=== PATIENT | male | born 1955 | race Caucasian/White ===

== ENCOUNTER 2019-09-07 06:46 | Day surgery (SDC) | payer BC ==
--- NOTE | 2019-09-04 11:09 | PCM.PREANE ---
Preanesthetic Assessment - Anesthesia/Transfusion/Family Hx Anesthesia History: Prior Anesthesia Without Reaction Family History of Anesthesia Reaction: No Transfusion History: No Prior Transfusion(s) Intubation History: Unknown - Review of Systems General: Fatigue Pulmonary: No Symptoms (BRETT with no CPAP) - Physical Assessment NPO Status Date: 09/06/19 Vital Signs: HR: BP: Resp: Sat: Temp: Height: 1.85 m ASA Class: 2 Mental Status: Alert & Oriented x3 - Lab Values: Laboratory Last Values MRSA (PCR) Negative 09/02/19 15:46 All labs reviewed and noted and within acceptable ranges to proceed with scheduled procedure. - Imaging/EKG Impressions: EKG: - Anesthesia Plan Pre-Op Medication Ordered: None - Acknowledgements Anesthesia Type Planned: General Anesthesia Pt an Appropriate Candidate for the Planned Anesthesia: Yes Alternatives and Risks of Anesthesia Discussed w Pt/Guardian: Yes Pt/Guardian Understands and Agrees with Anesthesia Plan: Yes PreAnesthesia Questionnaire - CURRENT (IN HOUSE) MEDS Current Meds: Current Medications Lactated Ringer's (Ringers, Lactated) 1,000 mls @ 125 mls/hr IV ASDIRECTED NEENA Stop: 09/07/19 23:00 Lidocaine/Sodium Bicarbonate (Buffered Lidocaine 1% In Ns 8.4%) 0.25 ml IDERM ONETIME PRN PRN Reason: Prior to IV Start Stop: 09/07/19 18:00 Sodium Chloride (Saline Flush) 10 ml FLUSH ASDIRECTED PRN PRN Reason: Keep Vein Open Stop: 09/07/19 18:00
[~2019-09-07 06:46] MED LIST: Lactated Ringers 1,000 ML IV SCH; Lidocaine 1%/Sod Bicarbonate in NS 8.4% 1 ML Syringe IDERM PRN; Sodium Chloride 0.9% 10 ML Syringe FLUSH PRN
[2019-09-07] MEDS ORDERED: Bupivacaine 0.25% 10 ML SDV ONE (07:38)
[2019-09-07] MEDS ORDERED: Lidocaine 1% 4 ML ONE (07:41)
[2019-09-07] MEDS ORDERED: Propofol 200 MG/20 ML SDV ONE (07:41)
[2019-09-07] MEDS ORDERED: fentaNYL 250 MCG/5 ML SDV ONE (07:41)
[2019-09-07] MEDS ORDERED: Lactated Ringers 1,000 ML ONE (07:41)
[2019-09-07] MEDS ORDERED: Ondansetron 4 MG/2 ML SDV ONE (07:41)
[2019-09-07] MEDS ORDERED: Midazolam 1 MG/ML 2 ML SDV ONE (07:41)
[2019-09-07] MEDS ORDERED: ceFAZolin 1 GM Vial ONE ×2 (07:41→07:42)
[2019-09-07] MEDS ORDERED: Dexamethasone 4 MG/ML 5 ML MDV ONE (07:42)
[2019-09-07] MEDS ORDERED: Ketorolac 30 MG/ML SDV ONE (07:42)
--- NOTE | 2019-09-07 08:09 | PCM.PREANE ---
Preanesthetic Assessment - Anesthesia/Transfusion/Family Hx Anesthesia History: Prior Anesthesia Without Reaction Family History of Anesthesia Reaction: No Transfusion History: No Prior Transfusion(s) Intubation History: Unknown - Review of Systems General: Fatigue Pulmonary: Other (Sleep apnea does not use CPAP at this time. He will be going in for a mask fitting soon. ) Cardiovascular: No Symptoms Gastrointestinal: No Symptoms Neurological: No Symptoms Other: Reports: None - Physical Assessment NPO Status Date: 09/06/19 NPO Status Time: 23:30 Vital Signs: Last Vital Signs Temp 36.2 C 09/07/19 06:55 Pulse 64 09/07/19 06:55 Resp 16 09/07/19 06:55 BP 129/80 09/07/19 06:55 Pulse Ox 96 09/07/19 06:55 Height: 1.85 m Weight: 121.109 kg ASA Class: 2 Mental Status: Alert & Oriented x3 Airway Class: Mallampati = 2 Dentition: Reports: Missing Tooth/Teeth, Caries Thyro-Mental Finger Breadths: 3 Mouth Opening Finger Breadths: 3 ROM/Head Extension: Full Lungs: Clear to Auscultation, Normal Respiratory Effort Cardiovascular: Regular Rate, Regular Rhythm - Lab Values: Laboratory Last Values MRSA (PCR) Negative 09/02/19 15:46 - Imaging/EKG Impressions: Reviewed. SR at 64 bpm. Early transition. - Allergies Allergies/Adverse Reactions: Allergies Allergy/AdvReac Type Severity Reaction Status Date / Time No Known Allergies Allergy Verified 09/07/19 07:20 - Acknowledgements Anesthesia Type Planned: General Anesthesia Pt an Appropriate Candidate for the Planned Anesthesia: Yes Alternatives and Risks of Anesthesia Discussed w Pt/Guardian: Yes Pt/Guardian Understands and Agrees with Anesthesia Plan: Yes PreAnesthesia Questionnaire HEENT History: Reports: Impaired Vision, Other (See Below) Other HEENT History: wears glasses Cardiovascular History: Reports: None Respiratory History: Reports: Sleep Apnea, Other (See Below) Other Respiratory History: does not use cpap or bipap, awaiting another sleep study Gastrointestinal History: Reports: None Genitourinary History: Reports: None LODE MINER History: Reports: None Musculoskeletal History: Reports: Other (See Below) Other Musculoskeletal History: olecranon bursitis, knee replacement, knee surgery Neurological History: Reports: None Psychiatric History: Reports: None Endocrine/Metabolic History: Reports: None Hematologic History: Reports: None Immunologic History: Reports: None Oncologic (Cancer) History: Reports: None Dermatologic History: Reports: None, Seborrheic Dermatitis - Past Surgical History Head Surgeries/Procedures: Reports: None Cardiovascular Surgical History: Reports: None Respiratory Surgical History: Reports: None GI Surgical History: Reports: Appendectomy, Colonoscopy Female Surgical History: Reports: None Male Surgical History: Reports: None Endocrine Surgical History: Reports: None Neurological Surgical History: Reports: None Musculoskeletal Surgical History: Reports: Knee Replacement Oncologic Surgical History: Reports: None Dermatological Surgical History: Reports: None - SUBSTANCE USE Smoking Status *Q: Never Smoker Recreational Drug Use History: No - HOME MEDS Home Medications: Home Meds Acetaminophen/HYDROcodone [[place] 325-5 MG] 1 - 2 tab PO Q6H PRN #30 tablet 09/07 [Rx] - CURRENT (IN HOUSE) MEDS Current Meds: Current Medications Lactated Ringer's (Ringers, Lactated) 1,000 mls @ 125 mls/hr IV ASDIRECTED NEENA Stop: 09/07/19 23:00 Last Admin: 09/07/19 07:21 Dose: 125 mls/hr Lidocaine/Sodium Bicarbonate (Buffered Lidocaine 1% In Ns 8.4%) 0.25 ml IDERM ONETIME PRN PRN Reason: Prior to IV Start Stop: 09/07/19 18:00 Last Admin: 09/07/19 07:21 Dose: 0.25 ml Sodium Chloride (Saline Flush) 10 ml FLUSH ASDIRECTED PRN PRN Reason: Keep Vein Open Stop: 09/07/19 18:00 Discontinued Medications Bupivacaine HCl (Sensorcaine-Mpf 0.25%) Confirm Administered Dose 30 ml .ROUTE .STK-MED ONE Stop: 09/07/19 07:39 Cefazolin Sodium (Ancef) Confirm Administered Dose 2 gm .ROUTE .STK-MED ONE Stop: 09/07/19 07:42 Cefazolin Sodium (Ancef) Confirm Administered Dose 1 gm .ROUTE .STK-MED ONE Stop: 09/07/19 07:43 Dexamethasone (Dexamethasone) Confirm Administered Dose 20 mg .ROUTE .STK-MED ONE Stop: 09/07/19 07:43 Fentanyl (Sublimaze) Confirm Administered Dose 250 mcg .ROUTE .STK-MED ONE Stop: 09/07/19 07:42 Lidocaine HCl (Xylocaine-Mpf 1%) Confirm Administered Dose 4 mls @ as directed .ROUTE .STK-MED ONE Stop: 09/07/19 07:42 Lactated Ringer's (Ringers, Lactated) Confirm Administered Dose 1,000 mls @ as directed .ROUTE .STK-MED ONE Stop: 09/07/19 07:42 Ketorolac Tromethamine (Toradol) Confirm Administered Dose 30 mg .ROUTE .STK- MED ONE Stop: 09/07/19 07:43 Midazolam HCl (Versed 1 Mg/Ml) Confirm Administered Dose 2 mg .ROUTE .STK-MED ONE Stop: 09/07/19 07:42 Ondansetron HCl (Zofran) Confirm Administered Dose 4 mg .ROUTE .STK-MED ONE Stop: 09/07/19 07:42 Propofol (Diprivan 20 Ml) Confirm Administered Dose 400 mg .ROUTE .STK-MED ONE Stop: 09/07/19 07:42
[2019-09-07] MEDS ORDERED: ePHEDrine/Normal Saline 25 MG/5 ML Syringe ONE (08:34)
[2019-09-07] MEDS ORDERED: Ketamine 500 mg/10 ML MDV ONE (08:46)
[2019-09-07] MEDS ORDERED: HYDROmorphone 0.5 MG/0.5 ML Syringe IVPUSH PRN (09:18)
[2019-09-07] MEDS ORDERED: fentaNYL 100 MCG/2 ML SDV IVPUSH PRN (09:18)
[2019-09-07] MEDS ORDERED: Ondansetron 4 MG/2 ML SDV IVPUSH PRN (09:18)
--- NOTE | 2019-09-07 09:53 | PCM.POSTAN ---
POST ANESTHESIA ASSESSMENT - MENTAL STATUS Mental Status: Somnolent - VITAL SIGNS Vital Signs: Last Vital Signs 947 107/62 95% 74 13 97.4F - RESPIRATORY Respiratory Status: Respiratory Rate WNL, Airway Patent, O2 Saturation Stable, Supplemental Oxygen - CARDIOVASCULAR CV Status: Pulse Rate WNL, Blood Pressure Stable - GASTROINTESTINAL GI Status: No Symptoms - PAIN Pain Score: 0 - POST OP HYDRATION Hydration Status: Adequate & Stable
--- NOTE | 2019-09-07 10:09 | CR ---
Right elbow: Three views of the right elbow were obtained utilizing C-arm device. Comparison: No prior elbow study. Study shows a probe device pointing to the olecranon process. Olecranon spur is noted. Fluoroscopy time is given as 11.9 seconds. Impression: 1. Procedural study as noted above. Diagnostic code #2
[2019-09-07] MEDS ORDERED: Acetaminophen/HYDROcodone 325-5 MG Tab PO PRN (10:55)
--- NOTE | 2019-09-07 11:56 | PCM48HPAN ---
Post Anesthesia Note - EVALUATION WITHIN 48HRS OF ANESTHETIC Vital Signs in Normal Range: Yes Patient Participated in Evaluation: Yes Respiratory Function Stable: Yes Airway Patent: Yes Cardiovascular Function Stable: Yes Hydration Status Stable: Yes Pain Control Satisfactory: Yes Nausea and Vomiting Control Satisfactory: Yes Mental Status Recovered: Yes Vital Signs: Last Vital Signs Temp 36.3 C 09/07/19 10:50 Pulse 66 09/07/19 10:50 Resp 14 09/07/19 10:50 BP 103/67 09/07/19 10:50 Pulse Ox 95 09/07/19 10:50
--- NOTE | 2019-09-09 07:13 | PCM.OPNOTE ---
- General Post-Op/Procedure Note Date of Surgery/Procedure: 09/07/19 Operative Procedure(s): right olecranon bursectomy Pre Op Diagnosis: right olecranon bursitis Post-Op Diagnosis: Same Anesthesia Technique: General LMA, Local Primary Surgeon: Ignacio Moss Anesthesia Provider: Lata Whitehead Health Policy Manager: Ibis Henley EBL in mLs: 5 Complications: None Condition: Good
--- NOTE | 2019-09-09 08:30 | OR ---
DATE OF OPERATION: 09/07/2019 SURGEON: Ignacio Moss MD OPERATION PERFORMED: Right olecranon bursectomy. PREOPERATIVE DIAGNOSIS: Right olecranon bursitis. POSTOPERATIVE DIAGNOSIS: Right olecranon bursitis. ANESTHESIA: General LMA with local. ANESTHESIA PROVIDER: Delores Beyer. E COMMERCE RETAILER: Ibis Henley PA-C. ESTIMATED BLOOD LOSS: Less than 5 mL. COMPLICATIONS: None. CONDITION: Stable. DESCRIPTION OF PROCEDURE: The patient was identified in the preoperative holding area. Proper site was marked and identified by the surgeon. The patient was taken back to the operating theater where after adequate anesthesia, the patient's right upper extremity had a nonsterile tourniquet applied and was then sterilely prepped and draped in the usual sterile fashion. OR time-out was performed. The patient received 3 g IV Ancef. At this time, right upper extremity was exsanguinated. Tourniquet was insufflated to 225 mmHg. Standard curvilinear incision was made centered over the olecranon bursa. This was taken down to the bursa. The bursa had a small amount of fluid that showed no signs of purulence. At this time, a bursectomy was undertaken in whole making sure to get on both the radial and ulnar side and as well removed any free floating pieces. The patient was noted to have olecranon spur, and with the use of a C-arm fluoroscopy, most of the majority of the spur was rongeured back to the point where some of the triceps tendon was attached. A rasp was then used to smooth out this portion and was found to have adequate resection. Both the bursa and the olecranon spur were removed. At this time, adequate saline was irrigated through the wound. 2-0 Vicryl was used subcutaneously. [place] were used for the skin. The patient tolerated the procedure well and sent to PACU in stable condition. MMODAL /[id number]
== END 2019-09-07 11:50 | disposition home or self-care (01) ==
LOC: JD.SDS 06:46
PROVIDERS: ATTEND Orthopaedic Surgery
DX: M70.21 Olecranon bursitis, right elbow (principal)
CPT/HCPCS: 24105; 76000; 87641; 93005; A9270; J0690; J1100; J1885; J2001; J2250; J2405; J2704; J3010; J3490; J7050; J7120